=== PATIENT | male | born 1945 ===

== ENCOUNTER 2016-09-13 16:14 | Inpatient (IN) | payer MEDICARE ==
[2016-09-13 16:19] VITALS: O2SAT 98
--- NOTE | 2016-09-13 16:40 | ED PDOC ---
Psych Transfer Clearance - Clearance Statement Clearance Statement: Reviewed vital signs. Lab results and transfer papers reviewed by Dr Freeman, who cleared patient for transfer,with similar BPs as current. Lactic acid was performed and was normal and thPatient clinically stable for psychiatric admission.
[2016-09-13] MEDS ORDERED: Magnesium Hydroxide Susp 30 ml UD PO PRN (17:42)
[2016-09-13] MEDS ORDERED: Alum-Mag Hydrox-Simethicone Susp (30 mL) PO PRN (17:44)
[2016-09-13] MEDS ORDERED: Bismuth Subsalicylate 262 mg/15 ml Sus (240 ml) PO PRN (17:44)
[2016-09-13] MEDS ORDERED: Pneumococcal 23-Valent Vaccine IM ONE (19:00)
[2016-09-14 09:10] LABS: HEMATOCRIT 41.6 % (35.0-51.0); MEAN CELL VOLUME 89.7 fl (80.0-94.0); MEAN CORPUSCULAR HEMOGLOBIN 28.9 pg (27.0-31.0); MEAN CORPUSCULAR HGB CONC 32.2 g/dL (33.0-37.0); RED CELL DISTRIBUTION WIDTH 14.8 % (11.5-14.5); WHITE BLOOD COUNT 6.5 K/uL (4.8-10.8)
[2016-09-14 09:19] LABS: ALB/GLOB RATIO 1.6 (1.0-2.1); ALKALINE PHOSPHATASE 54 U/L (38-126); ALT/SGPT 24 U/L (21-72); AST/SGOT 19 U/L (17-59); BILIRUBIN,TOTAL 0.4 mg/dl (0.2-1.3); BLOOD UREA NITROGEN 16 mg/dl (9-20); CALCIUM 9.5 mg/dL (8.4-10.2); CARBON DIOXIDE 28 mmol/L (22-30); CHLORIDE 103 mmol/L (98-107); CHOLESTEROL 130 mg/dL (0-199); GFR AFRICAN-AMERICAN > 60; GLUCOSE,RANDOM 101 mg/dL (75-110); IRON 74 ug/dL (49-181); POTASSIUM 4.1 MMOL/L (3.6-5.0); SODIUM 140 mmol/l (132-148); TOTAL PROTEIN 6.8 G/DL (6.3-8.2)
[2016-09-14 10:14] LABS: THYROID STIMULATING HORMONE 2.06 mIU/ML (0.46-4.68)
[2016-09-14 14:18] VITALS: BMI 17.9
--- NOTE | 2016-09-14 14:34 | CP.PCM.CON ---
History of Present Illness - History of Present Illness History of Present Illness: Hospitalist Consult H&P (Patient was seen and examined with Psychiatry Nurse at 1:30 PM 09/14/16 [id number]) 71 year old male who was admitted to the In-Patient Psychiatry Unit at [facility] after being transferred from [facility] where he was admitted for increased paranoia (he believed that his sister was trying to poison his food). Currently upon FULL ROS there is NO chest pain, NO palpitations, NO SOB/Cough/ Wheezing, NO dysphagia/odynophagia, NO abdominal pain, NO n/v/d (not moved his bowels in 2 to 3 days as he states that he has not eaten until breakfast and lunch until today, NO burning/pain with urination, NO lightheadedness/dizziness , NO new changes in vision/eye pain, NO new changes in hearing/ear pain, NO headaches, NO paresthesias, NO edema PMHx: Alcoholism, Hypotension PSHx: Cardiac Catheterization with Stent ALL: NDA Medications: Denies Social Hx: Lives alone, Worked selling books, (+) Alcohol: 1/2 pint of vodka with 2 to 3 beers daily, (+) Tobacco: 2 to 3 packs a day depending upon how much money he has (will not accept nicotine patch), NO illicit drugs Family Hx: Can not provide information Exam: General: NO distress HEENT:NCA, EOMI, PERRLA, NO thyromegaly, NO pharyngeal erythema/exudate, (+) Submandibular Lymphadenopathy on the Right, (+) Oral Ulcer on the floor of the mouth on the right below the tongue that is erythematous Cardio: Systolic Ejection Murmur heard in all of the auscultatory carlin Resp: CTA B/L, NO R/R/W GI: BSx4, Soft, NT, ND, NO HSM, NO guarding/rebound tenderness Ext: Pulses are strong and equal, NO edema, Capillary Refill is 2 seconds Neuro: CN II through XII are grossly intact 1). Psychosis Unspecified Treatment as per Psychiatry 2). Hx CAD As per my conversation with Psychiatry Nurse who spoke with patient's son, patient had Cardiac Catheterization roughly 3 to 4 years ago and never followed up with a [employer] afterwards and has not taken the medications recommended at that time other than inconsistently taking Aspirin and an uspecified cholesterol medication which patient states he took last roughly 3 months ago Patient will need to follow up with a [employer] as an outpatient for starting patient on medication and for follow up with 2D Echocardiogram 3). Oral Ulcer Patient will need to be seen by an Oral Surgeon as an outpatient through his PMD for biopsy considering his long history of alcohol and smoking Past Patient History - CARDIAC Hx Hypotension: Yes Other/Comment: pt. has a history of cardiac stint - MUSCULOSKELETAL/RHEUMATOLOGICAL Hx Back Pain: Yes Hx Falls: Yes - GASTROINTESTINAL Hx Bowel Surgery: Yes (bleeding ulcer) Hx Ulcer: Yes - PSYCHIATRIC Hx Substance Use: Yes - SURGICAL HISTORY Hx Cardiac Catheterization: Yes (with stint) Hx Herniorrhaphy: Yes (l inguinal) - ANESTHESIA Hx Anesthesia: Yes Hx Anesthesia Reactions: No Meds Allergies/Adverse Reactions: Allergies Allergy/AdvReac Type Severity Reaction Status Date / Time No Known Allergies Allergy Verified 09/13/16 16:16 - Medications Medications: Current Medications Acetaminophen (Tylenol 325mg Tab) 650 mg PO Q4 PRN PRN Reason: Pain, Mild (1-3) Al Hydrox/Mg Hydrox/Simethicone (Maalox Plus 30 Ml) 30 ml PO Q4 PRN PRN Reason: Indigestion / Heartburn Bismuth Subsalicylate (Pepto-Bismol) 524 mg PO Q1 PRN PRN Reason: Constipation Lorazepam (Ativan) 0.5 mg PO Q6 PRN PRN Reason: Anxiety Lorazepam (Ativan) 0.5 mg PO HS PRN PRN Reason: Insomnia Magnesium Hydroxide (Milk Of Magnesia) 30 ml PO HS PRN PRN Reason: Constipation Results - Vital Signs Recent Vital Signs: Last Vital Signs Temp 97.2 F L 09/14/16 05:36 Pulse 57 L 09/14/16 05:36 Resp 18 09/14/16 05:36 BP 113/56 L 09/14/16 05:36 Pulse Ox 98 09/13/16 16:16 - Labs Result Diagrams: 09/14/16 05:45 09/14/16 05:45 Labs: Laboratory Results - last 24 hr 09/14/16 09/14/16 09/14/16 05:45 05:45 05:45 WBC 6.5 RBC 4.64 Hgb 13.4 Hct 41.6 MCV 89.7 MCH 28.9 MCHC 32.2 L RDW 14.8 H Plt Count 156 Sodium 140 Potassium 4.1 Chloride 103 Carbon Dioxide 28 Anion Gap 14 BUN 16 Creatinine 0.8 Est GFR ( Amer) > 60 Est GFR (Non-Af Amer) > 60 Random Glucose 101 Calcium 9.5 Iron TIBC % Saturation Ferritin 22.5 Total Bilirubin 0.4 AST 19 ALT 24 Alkaline Phosphatase 54 Total Protein 6.8 Albumin 4.2 Globulin 2.6 Albumin/Globulin Ratio 1.6 Triglycerides 111 Cholesterol 130 LDL Cholesterol Direct 54 HDL Cholesterol 49 Vitamin B12 304 Free T4 0.90 Thyroxine (T4) 7.80 TSH 3rd Generation 2.06 09/14/16 05:45 WBC RBC Hgb Hct MCV MCH MCHC RDW Plt Count Sodium Potassium Chloride Carbon Dioxide Anion Gap BUN Creatinine Est GFR ( Amer) Est GFR (Non-Af Amer) Random Glucose Calcium Iron 74 TIBC 281 % Saturation 26 Ferritin Total Bilirubin AST ALT Alkaline Phosphatase Total Protein Albumin Globulin Albumin/Globulin Ratio Triglycerides Cholesterol LDL Cholesterol Direct HDL Cholesterol Vitamin B12 Free T4 Thyroxine (T4) TSH 3rd Generation
--- NOTE | 2016-09-14 19:24 | PCM.PSYCH ---
Initial Psychiatric Evaluation - Initial Psychiatric Evaluation Chief Complaint (in patient's own words): i dont know why i am here Patient's Reaction to Hospitalization: pt is upset History of Present Illness and Precipitating Events: This is the t [facility] admission for this 71 yr old male with h/o Alcohl abuse and transferred from [facility] because pt has been expressing paranoid ideation and exhibiting hallucinations.pt has paranoid delusion that sister has been trying to poison him.pt says that he stopped drinking and used to drink half pint of vodka weekly. Current Medications: Active Medications Generic Name Dose Route Start Last Admin Trade Name Freq PRN Reason Stop Dose Admin Acetaminophen 650 mg 09/13/16 17:39 Tylenol 325mg Tab PO Q4 PRN Pain, Mild (1-3) Al Hydrox/Mg Hydrox/Simethicone 30 ml 09/13/16 17:44 Maalox Plus 30 Ml PO Q4 PRN Indigestion / Heartburn Bismuth Subsalicylate 524 mg 09/13/16 17:44 Pepto-Bismol PO Q1 PRN Constipation Lorazepam 0.5 mg 09/13/16 17:45 Ativan PO Q6 PRN Anxiety Lorazepam 0.5 mg 09/13/16 17:47 Ativan PO HS PRN Insomnia Magnesium Hydroxide 30 ml 09/13/16 17:42 Milk Of Magnesia PO HS PRN Constipation Past Psychiatric History - Past Psychiatric History Previous Treatment History: None History of Abuse: not known History of ETOH/Drug Use: pt admits to drinking half pint of vodka daily and stopped drinking months ago History of Family Illness: not reported Pertinent Medical Hx (Current Medical&Sleep Prob, Allergies): Allergies Allergy/AdvReac Type Severity Reaction Status Date / Time No Known Allergies Allergy Verified 09/13/16 16:16 Aspirin [Aspirin Chewable] 81 mg PO DAILY 09/13/16 h/o CAD,s/p stent and h/o hypotension Review of Systems - Review of Systems All systems: reviewed and no additional remarkable complaints except Mental Status Examination - Personal Presentation Personal Presentation: Looks stated age - Affect Affect: Flat - Motor Activity Motor Activity: Other - Reliability in Providing Information Reliability in Providing Information: Poor, due to alteration in thoughts - Speech Speech: Disorganized - Mood Mood: Anxious - Formal Thought Process Formal Thought Process: Hallucinations, Paranoia, Flight of ideas - Obsessions/Compulsions Obsessions: No Compulsions: No - Cognitive Functions Orientation: Person, Place, Situation, Time Sensorium: Alert Attention/Concentration: Easily distracted Abstract Thinking: [place] Estimate of Intelligence: Average Judgement: Imparied, as evidence by: Poor judgement, Imparied, as evidence by: Lack of insight into illness Memory: Recent impaired, as evidence by: Inability to recall events of the day, Remote intact, as evidenced by: Ability to recall historical events - Risk Risk: Diminished functioning - Strength & Assets Inventory Strength & Assets Inventory: Family support - Limitations Limitations: Living alone DSM 5 DX - DSM 5 DSM 5 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 wiill start pt on risperdal 0.25 mg bid for addressing psychosis Will have hospitalist follow up for h/o CAD and s/p stent and hypotension.
--- NOTE | 2016-09-15 11:33 | PCM.PYCHPN ---
Psychiatric Progress Note - Psychiatric Progress Note Patient seen today, length of contact: Patient evaluated, case discussed with team, chart reviewed, 35 min Patient Chief Complaint: "I'm okay" Problems Identified/Issues Discussed: Patient states that he believes he is being poisoned by family members. When asked about why he is in the hospital, he is evasive and states that we should check the chart. He denies current depression/anxiety. He is irritable towards staff and continues to be paranoid. He does endorse hearing AH in the past. He is demanding and has several complaints about everything ranging from not having a TV in his room, to disliking the food. Medication Change: Yes (Increase Risperdal to 0.5 mg PO BID, start Thiamine and Folate) Medical Record Reviewed: Yes Consults ordered or reviewed: Medicine consult appreciated Mental Status Examination - Cognitive Function Orientation: Person, Place, Situation, Time Memory: Impaired Association: Loose Decription of patient's judgement and insights: Poor insight/judgment - Mood Mood: Neutral - Affect Affect: Constricted (Irritable) - Formal Thought Process Formal Thought Process: Paranoia, Loosening of associations Psychotic Thoughts and Behaviors: +Paranoia - Suicidal Ideation Suicidal Ideation: No - Homicidal Ideation Homicidal Ideation: No Goal/Treatment Plan - Goal/Treatment Plan Need for Continued Stay: Remain at risks for inpatient hospitalization, Discharge may exacerbated symptoms, Severe functional impairment Progress Toward Problem(s) and Goals/Treatment Plan: 71 yo male w/ significant history of alcohol abuse, admitted due to psychosis, paranoia and violence towards his family. -Increase Risperdal to 0.5 mg PO BID -Medicine consult appreciated -Individual and group therapy -Thiamine and Folate, patient has an extensive history of alcohol abuse. -Contact patient's family for collateral history Estimated Date of D/C: 09/19/16
--- NOTE | 2016-09-16 12:55 | PCM.PYCHPN ---
Psychiatric Progress Note - Psychiatric Progress Note Patient seen today, length of contact: Patient evaluated, case discussed with team, chart reviewed, 35 min Patient Chief Complaint: "I'm okay" Problems Identified/Issues Discussed: Patient observed calmly eating lunch. Patient is calm, cooperative and has not had any episodes of violence. He denies ideation to harm himself or others. He reports that he currently feels safe in the hospital, but is uncertain if he is being poisoned by his family when he is at home. He denies current AH/VH. He had a visit from his family without any issues. Medication Change: No Medical Record Reviewed: Yes Mental Status Examination - Cognitive Function Orientation: Person, Place, Situation, Time Memory: Impaired Association: Loose Decription of patient's judgement and insights: Poor insight/judgment - Mood Mood: Neutral - Affect Affect: Constricted (Irritable) - Formal Thought Process Formal Thought Process: Paranoia Psychotic Thoughts and Behaviors: +Paranoia - Suicidal Ideation Suicidal Ideation: No - Homicidal Ideation Homicidal Ideation: No Goal/Treatment Plan - Goal/Treatment Plan Need for Continued Stay: Remain at risks for inpatient hospitalization, Discharge may exacerbated symptoms, Severe functional impairment Progress Toward Problem(s) and Goals/Treatment Plan: 71 yo male w/ significant history of alcohol abuse, admitted due to psychosis, paranoia and violence towards his family. -Continue Risperdal 0.5 mg PO BID -Medicine consult appreciated -Individual and group therapy -Thiamine and Folate, patient has an extensive history of alcohol abuse. -Contact patient's family for collateral history Estimated Date of D/C: 09/19/16
[2016-09-16 17:42] LABS: FOLATE 5.9 ng/mL
--- NOTE | 2016-09-17 09:40 | PCM.PYCHPN ---
Psychiatric Progress Note - Psychiatric Progress Note Patient seen today, length of contact: Patient evaluated, case discussed with team, chart reviewed, 35 min Patient Chief Complaint: "I'm okay" Problems Identified/Issues Discussed: Patient continues to have periods of irritability, especially when he is not given what he wants (like food, etc), but he has not had any issues of aggression or threatening behavior. Patient is calm, cooperative towards card writer hand. He denies ideation to harm himself or others. He denies current paranoia towards staff or his family, but continues to be uncertain if his family was poisoning him in the past. He denies current AH/VH. Medication Change: No Medical Record Reviewed: Yes Mental Status Examination - Cognitive Function Orientation: Person, Place, Situation, Time Memory: Impaired Association: Loose Decription of patient's judgement and insights: Poor insight/judgment - Mood Mood: Neutral - Affect Affect: Constricted (Irritable) - Formal Thought Process Formal Thought Process: Paranoia Psychotic Thoughts and Behaviors: Paranoia improving - Suicidal Ideation Suicidal Ideation: No - Homicidal Ideation Homicidal Ideation: No Goal/Treatment Plan - Goal/Treatment Plan Need for Continued Stay: Remain at risks for inpatient hospitalization, Discharge may exacerbated symptoms, Severe functional impairment Progress Toward Problem(s) and Goals/Treatment Plan: 71 yo male w/ significant history of alcohol abuse, admitted due to psychosis, paranoia and violence towards his family. -Continue Risperdal 0.5 mg PO BID -Medicine consult appreciated -Individual and group therapy -Thiamine and Folate, patient has an extensive history of alcohol abuse. -Contact patient's family for collateral history Estimated Date of D/C: 09/19/16
[2016-09-18 05:50] VITALS: RESP 20
--- NOTE | 2016-09-18 08:35 | PCM.PYCHPN ---
Psychiatric Progress Note - Psychiatric Progress Note Patient seen today, length of contact: Patient evaluated, case discussed with team, chart reviewed, 35 min Patient Chief Complaint: "I'm okay" Problems Identified/Issues Discussed: Patient get irritable when he wants something, like extra bread, etc, but otherwise is calm and cooperative without current complaints. He is not currently expressing any paranoid ideation, but was observed talking to himself. He denies current AH to ad writer and jokes that he only hears the ad writer talking to him. He denies ideation to harm himself or others. Medication Change: No Medical Record Reviewed: Yes Mental Status Examination - Cognitive Function Orientation: Person, Place, Situation, Time Memory: Impaired Association: Loose Decription of patient's judgement and insights: Poor insight/judgment - Mood Mood: Neutral - Affect Affect: Constricted (Irritable) - Formal Thought Process Formal Thought Process: Other (Internally preoccupied) Psychotic Thoughts and Behaviors: Denies acute paranoia or hallucinations but has been observed talking to himself. - Suicidal Ideation Suicidal Ideation: No - Homicidal Ideation Homicidal Ideation: No Goal/Treatment Plan - Goal/Treatment Plan Need for Continued Stay: Remain at risks for inpatient hospitalization, Discharge may exacerbated symptoms Progress Toward Problem(s) and Goals/Treatment Plan: 71 yo male w/ significant history of alcohol abuse, admitted due to psychosis, paranoia and violence towards his family. -Continue Risperdal 0.5 mg PO BID -Medicine consult appreciated -Individual and group therapy -Psychology consult to evaluate for possible dementia -Thiamine and Folate, patient has an extensive history of alcohol abuse. -Likely discharge to home tomorrow under the care of his son if he continues to improve clinically Estimated Date of D/C: 09/19/16
[2016-09-19 05:59] VITALS: BP 103/52; PULSE 60; TEMP 96.9
--- NOTE | 2016-09-19 08:38 | PCM.PYCHDC ---
Mental Status Examination - Mental Status Examination Orientation: Person, Place, Situation, Time Memory: Intact Mood: Neutral Affect: Broad Speech: Appropriate Attention: WNL Association: WNL Fund of Knowledge: WNL Formal Thought Process: No Impairment Description of patient's judgement and insight: Poor insight/judgment Psychotic Thoughts and Behaviors: No AH/VH/paranoia/delusions Suicidal Ideation: No Current Homicidal Ideation?: No Discharge Summary - Discharge Note Reason for Hospitalization: Per initial admission note "71 yr old male with h/o Alcohl abuse and transferred from [facility] because pt has been expressing paranoid ideation and exhibiting hallucinations.pt has paranoid delusion that sister has been trying to poison him.pt says that he stopped drinking and used to drink half pint of vodka weekly." Consultations:: List each consultation separately and include: 1. Reason for request. 2. Findings. 3. Follow-up Consultations: Medicine consult appreciated; Psychology consult appreciated- Patient does show some mild deficits and would benefit from assistance doing tasks, such as paying his bills, but overall is able to care for himself and his basic needs at this time (see full consult note). Summary of Hospital Course include:: 1. Description of specific treatment plan utilized for patients during their course of treatmen. 2. Summarize the time- course for resolution of acute symptoms and/or regressed behaviors. 3. Describe issues identified and worked on during hospitalization. 4. Describe medication utilized. 5. Describe medical problems identified and treated. 6. Reassessment of suicide risk Summary of Hospital Course: Patient was admitted to the hospital and stabilized on Risperdal 0.5 mg PO BID. He has not been violent or aggressive since admission and no longer expresses paranoid ideation. He is psychiatrically stable for discharge to home under the care of his son. - Final Diagnosis (DSM 5) Condition upon Discharge: FAIR DSM 5: Psychosis unspecified Disposition: HOME/ ROUTINE Follow-up Treatment Plan: 71 yo male w/ significant history of alcohol abuse, admitted due to psychosis, paranoia and violence towards his family, now improved clinically. -Continue Risperdal 0.5 mg PO BID -Discharge to home tomorrow under the care of his son Discharge >35 min Prescriptions/Medication Reconciliation: risperiDONE [RisperDAL Tab] 0.5 mg PO BID #60 tab - Smoking Cessation Smoking Cessation Medication prescribed: No Reason for not providing: Not indicated - Antipsychotic Medications Pt discharged on 2 or more routine antipsychotic medications: No
--- NOTE | 2016-09-19 10:09 | CP.PCM.CON ---
History of Present Illness - History of Present Illness History of Present Illness: Pt is a 71 year old male referred to the content writer for evaluation to assess his cognitive functioning. Pt reported having had been admitted due to his Memory. On the DRS, pt scored an overall score of 114. Pt scored within normal limits on Attention, and Construction tasks. Pt's Initiation/Perseveration, and Memory skills fell in the Borderline Range. Conceptualization skills fell in the Deficient Range. Overall 114 Attention 36 Construction 4 Conceptualization 26 (32+ intact cogntive skills) Initation 31 (32+ intact cogntiive skills) Memory 17 (18 + intact cogntiive skills). Pt denied memory issues on interview. He spoke of being independent when at home with shopping and bill pay. Pt provided his history reliably, was able to describe current and past events. He reported significant alcohol abuse with drug use denied. pt denied a psych history. Reccomendations Monitoring of his cognitive functioning and memory Supervision with bill pay and medication organization to ensure safety. Deficits were evident though not severe. Thank you for this referral, Dr. Feliciano Past Patient History - CARDIAC Hx Hypotension: Yes Other/Comment: pt. has a history of cardiac stint - MUSCULOSKELETAL/RHEUMATOLOGICAL Hx Back Pain: Yes Hx Falls: Yes - GASTROINTESTINAL Hx Bowel Surgery: Yes (bleeding ulcer) Hx Ulcer: Yes - PSYCHIATRIC Hx Substance Use: Yes - SURGICAL HISTORY Hx Cardiac Catheterization: Yes (with stint) Hx Herniorrhaphy: Yes (l inguinal) - ANESTHESIA Hx Anesthesia: Yes Hx Anesthesia Reactions: No Meds Home Medications: Home Medication List Medication Instructions Recorded Confirmed Type Folic Acid 1 mg PO DAILY tab 09/19/16 Rx Thiamine [Vitamin B1 Tab] 100 mg PO DAILY tab 09/19/16 Rx risperiDONE [RisperDAL Tab] 0.5 mg PO BID #60 tab 09/19/16 Rx Allergies/Adverse Reactions: Allergies Allergy/AdvReac Type Severity Reaction Status Date / Time No Known Allergies Allergy Verified 09/13/16 16:16 - Medications Medications: Current Medications Aspirin (Aspirin Chewable) 81 mg PO DAILY [facility] Last Admin: 09/19/16 08:23 Dose: 81 mg Folic Acid (Folic Acid) 1 mg PO DAILY [facility] Last Admin: 09/19/16 08:24 Dose: 1 mg Risperidone (Risperdal Tab) 0.5 mg PO BID [facility] Last Admin: 09/19/16 08:24 Dose: 0.5 mg Thiamine HCl (Vitamin B1 Tab) 100 mg PO DAILY [facility] Last Admin: 09/19/16 08:24 Dose: 100 mg Results - Vital Signs Recent Vital Signs: Last Vital Signs Temp 96.9 F L 09/19/16 05:57 Pulse 60 09/19/16 05:57 Resp 20 09/19/16 05:57 BP 103/52 L 09/19/16 05:57 Pulse Ox 98 09/13/16 16:16 - Labs Result Diagrams: 09/14/16 05:45 09/14/16 05:45
== END 2016-09-19 13:59 | disposition home or self-care (01) | DRG 897 ==
LOC: H.ER 16:14 → H.ERHOLD 16:33 → H.STEP 17:00
PROVIDERS: ADMIT Psychiatry & Neurology Psychiatry; ATTEND Psychiatry & Neurology Psychiatry
PROC: GZHZZZZ Group Psychotherapy (ICD-10-PCS; principal; 2016-09-13)
PROC: GZ58ZZZ Individual Psychotherapy, Cognitive-Behavioral (ICD-10-PCS; 2016-09-13)
DX: F10.250 Alcohol dependence with alcohol-induced psychotic disorder with delusions (principal); I25.10 Atherosclerotic heart disease of native coronary artery without angina pectoris; K12.1 Other forms of stomatitis; Z72.0 Tobacco use; Z95.5 Presence of coronary angioplasty implant and graft